=== PATIENT | male | born 1950 | race Hispanic/Latino ===

== ENCOUNTER → 2024-02-26 | Outpatient (CLI) | payer MEDICARE ==
[~2024-02-26] MED LIST: MACR100 PO; OSEL75 PO; PANT40TA PO
== END | disposition home or self-care (01) ==
LOC: RAH 14:04
PROVIDERS: ATTEND Surgery
DX: S06.5XAA Traumatic subdural hemorrhage with loss of consciousness status unknown, initial encounter (principal); R79.89 Other specified abnormal findings of blood chemistry; G93.89 Other specified disorders of brain; H92.09 Otalgia, unspecified ear; X58.XXXA Exposure to other specified factors, initial encounter; Y93.89 Activity, other specified; Y92.89 Other specified places as the place of occurrence of the external cause; Y99.8 Other external cause status
CPT/HCPCS: 70450; 70486

== ENCOUNTER 2024-06-09 06:48 | Day surgery (SDC) | payer MEDICARE, OTHER ==
[2024-06-09] VITALS (11 sets, daily range): BP systolic 110–151; BP diastolic 59–82; PULSE 55–66; RESP 13–22
[~2024-06-09] VITALS: Ht 172.7 cm; Wt 68.0 kg
[2024-06-09] MEDS: 0.9%NACL 1000ML 1,000 ML IV ONE (07:52)
[2024-06-09] MEDS ORDERED: PROPOFOL 10 MG/ML 20ML VIAL IV ONE (09:30)
== END 2024-06-09 10:42 | disposition home or self-care (01) ==
LOC: DAH 06:48 → ENDO 06:48
PROVIDERS: ATTEND Internal Medicine Gastroenterology
DX: R13.10 Dysphagia, unspecified (principal); K29.50 Unspecified chronic gastritis without bleeding; Z93.1 Gastrostomy status; Z79.899 Other long term (current) drug therapy
CPT/HCPCS: 43239; 43247; J7030; J2704; A4620; A4215 ×2; A4223; A4222; A4221; A4663; A4606; J3490